=== PATIENT | male | born 1960 | race Caucasian/White ===

== ENCOUNTER 2024-09-22 07:24 | Inpatient (IN) | payer MEDICAID ==
[~2024-09-22] VITALS: Ht 180.3 cm; Wt 121.0 kg
[2024-09-22] VITALS (19 sets, daily range): BP systolic 131–165; BP diastolic 64–138; PULSE 67–110; RESP 14–20; TEMP 97.5–97.7; O2SAT 94–99
[~2024-09-22 07:24] MED LIST: BUPR-344 PO; GABA-532 PO; HYDR-4353 PO; NABU-139 PO; SIMV-42 PO
[2024-09-22] MEDS: normal saline 1000ml 1,000 ML IV ONE (08:01)
[2024-09-22] MEDS: ketorolac trometh 15mg/ml vial 15 MG/ML ML IM ONE (08:10)
[2024-09-22] MEDS: piperacillin/tazo 3.375gm/50ml 50 ML IV STA (08:10)
[2024-09-22 08:21] LABS: BASOPHILS # (AUTO) 0.1 X10'3 (0-0.2); BASOPHILS % (AUTO) 0.6 % (0-1); EOSINOPHILS # (AUTO) 0.1 X10'3 (0-0.9); EOSINOPHILS % (AUTO) 0.8 % (0-6); HEMATOCRIT 34.8 % (42.0-52.0); HEMOGLOBIN 11.7 g/dl (14.0-17.9); LYMPHOCYTES # (AUTO) 1.7 X10'3 (1.1-4.8); LYMPHOCYTES % (AUTO) 13.4 % (21-51); MEAN CORPUSCULAR HEMOGLOBIN 30.2 PG (27.0-31.0); MEAN CORPUSCULAR HGB CONC 33.5 g/dL (33.0-36.5); MEAN CORPUSCULAR VOLUME 90.2 FL (78-98); MEAN PLATELET VOLUME 7.3 FL (7.4-10.4); MONOCYTES # (AUTO) 1.5 X10'3 (0-0.9); MONOCYTES % (AUTO) 11.4 % (2-12); NEUTROPHILS # (AUTO) 9.5 X10'3 (1.8-7.7); NEUTROPHILS % (AUTO) 73.8 % (42-75); PLATELET COUNT 411 X10'3 (140-440); RED BLOOD COUNT 3.86 X10'6 (4.70-6.10); RED CELL DISTRIBUTION WIDTH 14.7 % (11.5-14.5); WHITE BLOOD COUNT 12.8 X10'3 (4.5-11.0)
[2024-09-22 08:40] LABS: ALANINE AMINOTRANSFERASE 157 U/L (12-78); ALBUMIN 3.3 G/DL (3.4-5.0); ALBUMIN/GLOBULIN RATIO 0.7 (1.1-1.5); ALKALINE PHOSPHATASE 140 IU/L (46-116); ANION GAP 9 (8-16); ASPARTATE AMINO TRANSFERASE 64 U/L (10-37); BILIRUBIN,TOTAL 0.5 MG/DL (0.1-1.0); BLOOD UREA NITROGEN 12 MG/DL (7-18); BUN/CREATININE RATIO 12.9 (10.0-20.0); CALCIUM 9.3 MG/DL (8.5-10.1); CHLORIDE 100 MMOL/L (99-107); CREATININE 0.93 MG/DL (0.60-1.10); GLUCOSE 128 MG/DL (70-104); POTASSIUM 4.3 MMOL/L (3.5-5.1); SODIUM 137 MMOL/L (135-145); TOTAL CARBON DIOXIDE 28.3 MMOL/L (24-32); TOTAL PROTEIN 7.8 G/DL (6.4-8.2); eCRCL 85 ML/MIN; eGFR 82 ML/MIN
[2024-09-22] MEDS ORDERED: iohexol 300mg/ml 100ml inj. ONE (08:47)
[2024-09-22] MEDS ORDERED: magnesium sulf-water 4G/100mL 100 ML IV PRN (10:20)
[2024-09-22] MEDS ORDERED: acetaminophen 325mg tablet PO PRN (10:20)
[2024-09-22] MEDS ORDERED: HYDROcodone/acetaminophen 5mg/325mg tablet PO PRN (10:20)
[2024-09-22] MEDS ORDERED: morphine 2 MG/ML inj. syringe IV PRN ×2 (10:20→13:05)
[2024-09-22] MEDS ORDERED: potassium Cl 40MEQ/1/2NS 520ml 520 ML IV PRN (10:20)
[2024-09-22] MEDS ORDERED: magnesium Cl slow-release 64mg tablet PO PRN (10:20)
[2024-09-22] MEDS ORDERED: mag hydrox/Alum hydrox/simeth 30ml oral suspension PO PRN (10:20)
[2024-09-22] MEDS ORDERED: potassium Cl 20 mEq SR tablet PO PRN ×2 (10:20)
[2024-09-22] MEDS ORDERED: ondansetron/PF 4mg/2ml inj IV PRN (10:20)
[2024-09-22] MEDS ORDERED: magnesium hydroxide 30ml (MOM) UD suspension PO PRN (10:20)
[2024-09-22] MEDS: HYDROmorphone 1 mg/ml syringe IV ONE (10:26)
[2024-09-22] MEDS: normal saline 1000ml 1,000 ML IV SCH (10:32)
[2024-09-22] MEDS: VANCOMYCIN 1GM 200ML H20 (PEG) 200 ML IV SCH (11:00)
[2024-09-22] MEDS ORDERED: meperidine/PF 25mg/ml syringe IV PRN ×2 (13:05)
[2024-09-22] MEDS: ringers solution, lacted 1,000 ML IV SCH (13:05)
[2024-09-22] MEDS ORDERED: proCHLORperazine 10 MG/2 ml inj IV PRN (13:05)
[2024-09-22] MEDS ORDERED: sevoflurane 250ml liquid IH ONE (13:11)
[2024-09-22] MEDS ORDERED: fentaNYL/PF 50MCG/1 ML 2ML syringe ONE (13:14)
[2024-09-22] MEDS ORDERED: midazolam 1 mg/ML 2ml injection ONE (13:15)
[2024-09-22] MEDS ORDERED: propofol inj 20 ML IV ONE (13:28)
[2024-09-22] MEDS ORDERED: ceFAZolin 1000mg inj ONE ×2 (13:28)
[2024-09-22] MEDS ORDERED: BUPIVAcaine 0.5% inj/PF 30 ML ONE (13:41)
[2024-09-22] MEDS ORDERED: ePHEDrine 50MG/ML INJ. ONE (13:57)
[2024-09-22 14:21] LABS: HIV ANTIBODY 1&2 RAPID NON-REACTIVE (Neg)
[2024-09-22] MEDS: BUPIVAcaine 0.5% inj/PF 30 ml vial IJ ONE (14:23)
[2024-09-22] MEDS: meperidine/PF 25mg/ml syringe IV PRN (14:30)
[2024-09-22] MEDS: acetaminophen 1,000mg/100ml IV 100 ML IV ONE (14:38)
[2024-09-22] MEDS: ondansetron/PF 4mg/2ml inj IV PRN (14:45)
[2024-09-22] MEDS: morphine 4 MG/ML inj SYRINge IV PRN ×2 (15:14→19:28)
[2024-09-22] MEDS: oxyCODONE/APAP 5-325mg tablet PO PRN (17:19)
[2024-09-22] MEDS: piperacillin/tazo 4.5gm/100ml 100 ML IV SCH (19:35)
[2024-09-23 06:00] VITALS: BP 180/86; PULSE 64; RESP 15; TEMP 97.8; O2SAT 95
[2024-09-23 06:45] LABS: BASOPHILS % (AUTO) 0.5 % (0-1); EOSINOPHILS # (AUTO) 0.2 X10'3 (0-0.9); EOSINOPHILS % (AUTO) 1.6 % (0-6); LYMPHOCYTES # (AUTO) 2.1 X10'3 (1.1-4.8); LYMPHOCYTES % (AUTO) 22.5 % (21-51); MEAN CORPUSCULAR HEMOGLOBIN 30.3 PG (27.0-31.0); MEAN CORPUSCULAR HGB CONC 33.5 g/dL (33.0-36.5); MEAN CORPUSCULAR VOLUME 90.4 FL (78-98); MEAN PLATELET VOLUME 7.2 FL (7.4-10.4); MONOCYTES # (AUTO) 0.8 X10'3 (0-0.9); MONOCYTES % (AUTO) 8.4 % (2-12); NEUTROPHILS # (AUTO) 6.4 X10'3 (1.8-7.7); PLATELET COUNT 358 X10'3 (140-440); RED BLOOD COUNT 3.32 X10'6 (4.70-6.10); RED CELL DISTRIBUTION WIDTH 14.7 % (11.5-14.5); WHITE BLOOD COUNT 9.5 X10'3 (4.5-11.0)
[2024-09-23 06:56] LABS: ALANINE AMINOTRANSFERASE 126 U/L (12-78); ALBUMIN 2.7 G/DL (3.4-5.0); ALBUMIN/GLOBULIN RATIO 0.7 (1.1-1.5); ALKALINE PHOSPHATASE 127 IU/L (46-116); ANION GAP 9 (8-16); ASPARTATE AMINO TRANSFERASE 43 U/L (10-37); BILIRUBIN,TOTAL 0.4 MG/DL (0.1-1.0); BLOOD UREA NITROGEN 10 MG/DL (7-18); BUN/CREATININE RATIO 12.3 (10.0-20.0); CALCIUM 8.7 MG/DL (8.5-10.1); CHLORIDE 103 MMOL/L (99-107); CREATININE 0.81 MG/DL (0.60-1.10); GLUCOSE 95 MG/DL (70-104); POTASSIUM 4.5 MMOL/L (3.5-5.1); SODIUM 139 MMOL/L (135-145); TOTAL CARBON DIOXIDE 27.1 MMOL/L (24-32); TOTAL PROTEIN 6.7 G/DL (6.4-8.2); eCRCL 98 ML/MIN; eGFR > 90 ML/MIN
[2024-09-23 08:00] VITALS: RESP 14; O2SAT 98
[2024-09-23 10:00] VITALS: BP 178/80; PULSE 71; RESP 16; TEMP 97.6; O2SAT 94
[2024-09-23] MEDS ORDERED: VANCOMYCIN LEVEL IV ONE (10:30)
[2024-09-23] MEDS ORDERED: ATOR10TA87 PO (11:00)
[2024-09-23] MEDS ORDERED: LISI40TA13 PO (11:00)
[2024-09-23] MEDS ORDERED: DOXA4TAB94 PO (11:00)
[2024-09-23] MEDS: gabapentin 300mg capsule PO SCH ×2 (13:19→19:39)
[2024-09-23] MEDS: lisinopril 20mg tablet PO ONE (14:18)
[2024-09-23] MEDS: atorvastatin 10mg tablet PO SCH (14:19)
[2024-09-23] MEDS: doxazosin mesylate 2mg tablet PO SCH (14:19)
[2024-09-23 18:00] VITALS: BP 157/74; PULSE 75; RESP 14; TEMP 98.5; O2SAT 94
[2024-09-23] MEDS: enoxaparin 40mg/0.4ml syringe SUBCUT SCH (19:41)
[2024-09-23 20:00] VITALS: RESP 14; O2SAT 94
[2024-09-23] MEDS ORDERED: vancomycin/NS 1 GM ADD-VANTAGE 250 ML IV SCH (20:00)
[2024-09-23 22:00] VITALS: BP 150/39; PULSE 82; RESP 18; TEMP 97.8; O2SAT 94
[2024-09-24] VITALS (8 sets, daily range): BP systolic 137–176; BP diastolic 63–85; PULSE 69–85; RESP 16–22; TEMP 97–98.4; O2SAT 94–96
[2024-09-24] MEDS: LORazepam 2 mg/ml vial IV PRN (00:46)
[2024-09-24 06:31] LABS: BASOPHILS % (AUTO) 0.5 % (0-1); EOSINOPHILS # (AUTO) 0.2 X10'3 (0-0.9); EOSINOPHILS % (AUTO) 2.9 % (0-6); HEMATOCRIT 34.1 % (42.0-52.0); HEMOGLOBIN 11.1 g/dl (14.0-17.9); LYMPHOCYTES # (AUTO) 2.1 X10'3 (1.1-4.8); LYMPHOCYTES % (AUTO) 28.1 % (21-51); MEAN CORPUSCULAR HEMOGLOBIN 29.5 PG (27.0-31.0); MEAN CORPUSCULAR HGB CONC 32.5 g/dL (33.0-36.5); MEAN CORPUSCULAR VOLUME 90.5 FL (78-98); MEAN PLATELET VOLUME 6.8 FL (7.4-10.4); MONOCYTES # (AUTO) 0.7 X10'3 (0-0.9); NEUTROPHILS # (AUTO) 4.4 X10'3 (1.8-7.7); NEUTROPHILS % (AUTO) 59.5 % (42-75); PLATELET COUNT 437 X10'3 (140-440); RED BLOOD COUNT 3.77 X10'6 (4.70-6.10); RED CELL DISTRIBUTION WIDTH 14.6 % (11.5-14.5); WHITE BLOOD COUNT 7.5 X10'3 (4.5-11.0)
[2024-09-24 06:45] LABS: ALANINE AMINOTRANSFERASE 146 U/L (12-78); ALBUMIN/GLOBULIN RATIO 0.7 (1.1-1.5); ALKALINE PHOSPHATASE 139 IU/L (46-116); ANION GAP 3 (8-16); ASPARTATE AMINO TRANSFERASE 63 U/L (10-37); BILIRUBIN,TOTAL 0.2 MG/DL (0.1-1.0); BLOOD UREA NITROGEN 10 MG/DL (7-18); CALCIUM 8.9 MG/DL (8.5-10.1); CHLORIDE 101 MMOL/L (99-107); GLUCOSE 93 MG/DL (70-104); POTASSIUM 4.2 MMOL/L (3.5-5.1); SODIUM 136 MMOL/L (135-145); TOTAL CARBON DIOXIDE 31.9 MMOL/L (24-32); TOTAL PROTEIN 7.3 G/DL (6.4-8.2); eCRCL 79 ML/MIN; eGFR 75 ML/MIN
[2024-09-24 07:12] LABS: TOTAL CELLS COUNTED 100
[2024-09-24 07:15] LABS: PLATELET ESTIMATE NORMAL
[2024-09-24] MEDS: lisinopril 20mg tablet PO SCH (07:30)
[2024-09-24] MEDS: CefTRIAXone/D5W-Rocephin 1gm 50 ML IV SCH (07:33)
[2024-09-24] MEDS ORDERED: VANCOMYCIN 1GM 200ML H20 (PEG) 200 ML IV SCH (08:00)
[2024-09-24] MEDS ORDERED: atorvastatin 10mg tablet PO SCH (08:00)
[2024-09-24] MEDS ORDERED: doxazosin mesylate 2mg tablet PO SCH (08:00)
[2024-09-24 08:13] LABS: HEMOGLOBIN A1C 5.8 % (4.5-6.2)
[2024-09-24] MEDS: VANCOMYCIN 1GM 200ML H20 (PEG) 200 ML IV SCH (09:25)
[2024-09-24] MEDS: LIDOcaine 4% (40 mg/ml) topical solution 50ml TP PRN (10:59)
[2024-09-24] MEDS: JUVEN Smoothie Arginine/Glut./Ca2+Bmb (Juven 19.3pkt) 240ml cup PO SCH (17:30)
[2024-09-25 08:24] LABS: BASOPHILS # (AUTO) 0.1 X10'3 (0-0.2); BASOPHILS % (AUTO) 0.7 % (0-1); EOSINOPHILS # (AUTO) 0.2 X10'3 (0-0.9); EOSINOPHILS % (AUTO) 2.7 % (0-6); HEMATOCRIT 36.1 % (42.0-52.0); HEMOGLOBIN 11.7 g/dl (14.0-17.9); LYMPHOCYTES % (AUTO) 24.6 % (21-51); MEAN CORPUSCULAR HEMOGLOBIN 29.7 PG (27.0-31.0); MEAN CORPUSCULAR HGB CONC 32.4 g/dL (33.0-36.5); MEAN CORPUSCULAR VOLUME 91.7 FL (78-98); MEAN PLATELET VOLUME 6.4 FL (7.4-10.4); MONOCYTES # (AUTO) 0.7 X10'3 (0-0.9); MONOCYTES % (AUTO) 8.4 % (2-12); NEUTROPHILS # (AUTO) 5.1 X10'3 (1.8-7.7); NEUTROPHILS % (AUTO) 63.6 % (42-75); PLATELET COUNT 442 X10'3 (140-440); RED BLOOD COUNT 3.94 X10'6 (4.70-6.10); RED CELL DISTRIBUTION WIDTH 14.9 % (11.5-14.5); WHITE BLOOD COUNT 8.1 X10'3 (4.5-11.0)
[2024-09-25 08:30] VITALS: RESP 20; O2SAT 96
[2024-09-25] MEDS: VANCOMYCIN LEVEL IV ONE (08:30)
[2024-09-25 08:47] LABS: ALANINE AMINOTRANSFERASE 167 U/L (12-78); ALBUMIN/GLOBULIN RATIO 0.7 (1.1-1.5); ALKALINE PHOSPHATASE 140 IU/L (46-116); ANION GAP 7 (8-16); ASPARTATE AMINO TRANSFERASE 64 U/L (10-37); BILIRUBIN,TOTAL 0.3 MG/DL (0.1-1.0); BLOOD UREA NITROGEN 14 MG/DL (7-18); BUN/CREATININE RATIO 15.1 (10.0-20.0); CALCIUM 8.9 MG/DL (8.5-10.1); CHLORIDE 101 MMOL/L (99-107); CREATININE 0.93 MG/DL (0.60-1.10); GLUCOSE 99 MG/DL (70-104); POTASSIUM 4.3 MMOL/L (3.5-5.1); SODIUM 136 MMOL/L (135-145); TOTAL CARBON DIOXIDE 28.1 MMOL/L (24-32); TOTAL PROTEIN 7.2 G/DL (6.4-8.2); eCRCL 85 ML/MIN; eGFR 82 ML/MIN
[2024-09-25 08:50] LABS: TOTAL CELLS COUNTED 100
[2024-09-25 08:51] LABS: PLATELET ESTIMATE INCREASED
[2024-09-25 10:00] VITALS: BP 164/77; PULSE 85; RESP 14; TEMP 97.4; O2SAT 95
[2024-09-25] MEDS: LIDOcaine 5% patch TP SCH (12:18)
[2024-09-25 18:00] VITALS: BP 132/77; PULSE 79; RESP 16; TEMP 98; O2SAT 95
[2024-09-25 20:00] VITALS: RESP 18; O2SAT 97
[2024-09-25 22:00] VITALS: BP 124/76; PULSE 84; RESP 17; TEMP 97.6; O2SAT 95
[2024-09-26 06:32] LABS: BASOPHILS # (AUTO) 0.1 X10'3 (0-0.2); BASOPHILS % (AUTO) 0.6 % (0-1); EOSINOPHILS # (AUTO) 0.2 X10'3 (0-0.9); EOSINOPHILS % (AUTO) 2.2 % (0-6); HEMATOCRIT 36.1 % (42.0-52.0); HEMOGLOBIN 11.5 g/dl (14.0-17.9); LYMPHOCYTES # (AUTO) 2.5 X10'3 (1.1-4.8); LYMPHOCYTES % (AUTO) 28.3 % (21-51); MEAN CORPUSCULAR HEMOGLOBIN 28.9 PG (27.0-31.0); MEAN CORPUSCULAR HGB CONC 31.9 g/dL (33.0-36.5); MEAN CORPUSCULAR VOLUME 90.4 FL (78-98); MEAN PLATELET VOLUME 6.4 FL (7.4-10.4); MONOCYTES # (AUTO) 0.8 X10'3 (0-0.9); MONOCYTES % (AUTO) 9.3 % (2-12); NEUTROPHILS # (AUTO) 5.3 X10'3 (1.8-7.7); NEUTROPHILS % (AUTO) 59.6 % (42-75); PLATELET COUNT 517 X10'3 (140-440); RED BLOOD COUNT 3.99 X10'6 (4.70-6.10); RED CELL DISTRIBUTION WIDTH 14.7 % (11.5-14.5); WHITE BLOOD COUNT 8.9 X10'3 (4.5-11.0)
[2024-09-26 06:41] LABS: ALANINE AMINOTRANSFERASE 145 U/L (12-78); ALBUMIN 3.1 G/DL (3.4-5.0); ALBUMIN/GLOBULIN RATIO 0.8 (1.1-1.5); ALKALINE PHOSPHATASE 138 IU/L (46-116); ANION GAP 6 (8-16); ASPARTATE AMINO TRANSFERASE 48 U/L (10-37); BILIRUBIN,TOTAL 0.3 MG/DL (0.1-1.0); BLOOD UREA NITROGEN 17 MG/DL (7-18); CALCIUM 8.8 MG/DL (8.5-10.1); CHLORIDE 102 MMOL/L (99-107); GLUCOSE 99 MG/DL (70-104); POTASSIUM 4.6 MMOL/L (3.5-5.1); SODIUM 136 MMOL/L (135-145); TOTAL CARBON DIOXIDE 27.8 MMOL/L (24-32); TOTAL PROTEIN 7.2 G/DL (6.4-8.2); eCRCL 79 ML/MIN; eGFR 75 ML/MIN
[2024-09-26 06:57] VITALS: BP 135/71; PULSE 65; RESP 18; TEMP 97.6; O2SAT 97
[2024-09-26 07:20] VITALS: RESP 18; O2SAT 97
[2024-09-26 10:00] VITALS: BP 134/55; PULSE 74; RESP 16; TEMP 97.4; O2SAT 95
[2024-09-26] MEDS ORDERED: PER5325T PO (10:41)
[2024-09-26] MEDS ORDERED: LEVO250T74 PO (10:41)
[2024-09-26] MEDS: levoFLOXACIN 250mg tablet PO SCH (10:46)
[2024-09-26 13:18] VITALS: RESP 18
[2024-09-28 05:21] LABS: HBSAG SCREEN Negative (Negative); HEP B CORE AB, TOT Negative (Negative)
== END 2024-09-26 15:30 | disposition home health service (06) | DRG 364 ==
LOC: ER 07:24 → ED HOLD 10:24 → PACU 14:43 → ORTHO 4S 15:40
PROVIDERS: ADMIT Internal Medicine; ATTEND Internal Medicine
PROC: 0Y950ZZ Drainage of Right Inguinal Region, Open Approach (ICD-10-PCS; principal; 2024-09-23)
DX: L02.214 Cutaneous abscess of groin (principal); G62.89 Other specified polyneuropathies; E88.09 Other disorders of plasma-protein metabolism, not elsewhere classified; D64.9 Anemia, unspecified; F32.A Depression, unspecified; F41.9 Anxiety disorder, unspecified; I10 Essential (primary) hypertension; R74.01 Elevation of levels of liver transaminase levels; D72.828 Other elevated white blood cell count; R73.9 Hyperglycemia, unspecified; G89.29 Other chronic pain; R59.0 Localized enlarged lymph nodes; Z79.899 Other long term (current) drug therapy
CPT/HCPCS: 36415; 74177; 80053; 80202; 83036; 83605; 85007; 85025; 86703; 86704; 87040; 87070; 87075; 87077; 87186; 87340; 93005; 97116; 97161; 97530; 99285; A4618; A6154; A6258; A6449; A7000; G0378; J0131; J0665; J0690; J0696; J1171; J1650; J1885; J2060; J2175; J2250; J2270; J2405; J2543; J2704; J3010; J3372; J3490; J7030; J7120; Q9967

== ENCOUNTER 2024-11-01 12:46 | Emergency (ER) | payer MEDICAID ==
[~2024-11-01] VITALS: Ht 180.3 cm; Wt 120.5 kg
[~2024-11-01 12:46] MED LIST changes: +ATOR10TA87 PO; +DOXA4TAB94 PO; +LEVO250T74 PO; +LISI40TA13 PO; +PER5325T PO; -SIMV-42 PO
[2024-11-01 13:12] VITALS: BP 149/67; PULSE 80; RESP 18; TEMP 96.9; O2SAT 96
[2024-11-02] MEDS ORDERED: CLIN-214 PO (07:41)
== END 2024-11-01 16:00 | disposition left against medical advice (07) ==
LOC: ER 12:47
DX: R60.9 Edema, unspecified (principal); Z53.21 Procedure and treatment not carried out due to patient leaving prior to being seen by health care provider

== ENCOUNTER 2024-11-02 07:14 | Emergency (ER) | payer MEDICAID ==
[~2024-11-02] VITALS: Ht 180.3 cm; Wt 120.5 kg
[2024-11-02 07:20] VITALS: BP 169/87; O2SAT 97
[2024-11-02] MEDS ORDERED: CLIN-214 PO (07:41)
[2024-11-02] MEDS: ketorolac trometh 30MG/ML vial 30 MG/ML VIAL IM ONE (07:46)
[2024-11-02] MEDS: clindamycin 150mg capsule PO ONE (07:46)
[2024-11-02 08:00] VITALS: PULSE 70; RESP 16; TEMP 98.1
== END 2024-11-02 08:01 | disposition home or self-care (01) ==
LOC: ER 07:14
DX: K04.7 Periapical abscess without sinus (principal); Z79.899 Other long term (current) drug therapy; Z72.89 Other problems related to lifestyle
CPT/HCPCS: 96372; 99283; J1885

== ENCOUNTER 2024-12-13 07:04 | Emergency (ER) | payer MEDICAID ==
[~2024-12-13] VITALS: Ht 180.3 cm; Wt 123.9 kg
[~2024-12-13 07:04] MED LIST changes: +CLIN-214 PO
[2024-12-13] MEDS: ketorolac trometh 30MG/ML vial 30 MG/ML VIAL IM ONE (08:18)
[2024-12-13] MEDS ORDERED: ACET-1059 PO (08:24)
[2024-12-13] MEDS ORDERED: AMOX875T10 PO (08:24)
[2024-12-13] MEDS ORDERED: IBUP-1984 PO (08:24)
[2024-12-13 08:50] VITALS: BP 147/79; PULSE 76; RESP 17; TEMP 98.5; O2SAT 96
== END 2024-12-13 08:54 | disposition home or self-care (01) ==
LOC: ER 07:05
DX: K08.89 Other specified disorders of teeth and supporting structures (principal)
CPT/HCPCS: 96372; 99284; J1885

== ENCOUNTER 2025-01-29 07:01 | Emergency (ER) | payer MEDICAID ==
[~2025-01-29] VITALS: Ht 180.3 cm; Wt 122.7 kg
[2025-01-29 07:03] VITALS: TEMP 97.6
[2025-01-29 07:17] VITALS: BP 167/93; PULSE 80; O2SAT 96
[2025-01-29] MEDS ORDERED: AMOX-580 PO (07:37)
[2025-01-29 07:41] VITALS: RESP 15
[2025-01-29] MEDS: amox tr/potassium clavulanate 875/125mg TAB PO ONE (07:41)
[2025-01-29] MEDS: ketorolac trometh 15mg/ml vial 15 MG/ML ML IM ONE (07:41)
== END 2025-01-29 07:47 | disposition home or self-care (01) ==
LOC: ER 07:03
DX: K08.89 Other specified disorders of teeth and supporting structures (principal); Z79.899 Other long term (current) drug therapy; Z72.89 Other problems related to lifestyle
CPT/HCPCS: 96372; 99283; J1885

== ENCOUNTER 2025-03-01 08:09 | Emergency (ER) | payer MEDICARE, MEDICAID ==
[~2025-03-01] VITALS: Ht 180.3 cm; Wt 120.6 kg
[~2025-03-01 08:09] MED LIST changes: +AMOX-580 PO
[2025-03-01 08:11] VITALS: BP 179/67; PULSE 80; RESP 16; TEMP 97.7; O2SAT 96
--- NOTE | 2025-03-01 08:45 | Physician Documentation ---
HPI ~ General Chief Complaint: Tooth Problem Stated Complaint: MED REQUEST TOOTH PAIN Time Seen by MD: 08:44 Primary Medical Doctor: Dr. Arrington History of Present Illness HPI Comment This is a 65-year-old male he has been seeing this ER multiple times for issues with dental infection and pain of the side of cracked tooth 12. He was most recent course of antibiotics was in his she was in his emergency department on 01/29/2025. He notes that each time he gets antibiotics, he improves, but then the issue returns. He was trying to get in with a dental office, but has not had any success. He denies chills, fever, difficulty swallowing, any other concerns besides the tooth pain and associated left upper facial swelling. Medication Reconciliation Allergies: Coded Allergies: No Known Allergies (Unverified , 11/02/24) Scheduled Amox Tr/Potassium Clavulanate 875/125 MG (Augmentin 875/125 MG), 1 TAB PO BID Amox Tr/Potassium Clavulanate 875/125 MG (Augmentin 875/125 MG), 1 TAB PO Q12H Atorvastatin Calcium* (Lipitor*), 1 TAB PO DAILY, (Reported) Bupropion XL (Bupropion Xl), PO DAILY, (Reported) Chlorhexidine Gluconate (Chlorhexidine Gluconate), 1 APPLIC TOP DAILY Clindamycin HCl (Clindamycin HCl CAPSULE), 2 CAP PO BID Doxazosin Mesylate (Doxazosin Mesylate), 1 TAB PO DAILY, (Reported) Gabapentin (Gabapentin), 1 CAP PO TID, (Reported) Hydrocodone Bit/Acetaminophen ([place] 10-325 Tablet), 1-2 TAB PO BID, (Reported) Levofloxacin (Levofloxacin), 750 MG PO DAILY@11 Lisinopril* (Lisinopril*), 1 TAB PO DAILY, (Reported) Nabumetone (Nabumetone), 1 TABLET PO BID, (Reported) Scheduled PRN Oxycodone Hcl/Acetaminophen 5/325 MG* (Percocet 5/325 MG*), 1 TAB PO Q6H PRN for moderate or severe pain 4-10 Past Medical History Past Medical History: Cellulitis Past Surgical History: noncontributory Alcohol Use: Occasionally Drug Use: none Lives In: Home Review of Systems ROS As stated above in the HPI, otherwise all systems are reviewed and negative. Physical Exam Vital Signs: Temperature: 97.7, Source: Oral, Heart Rate: 80, Respiratory Rate: 16, BP: 179/67, Pulse Oximetry: 96, Weight: 120.600 Oxygen Flow Rate: 0 Physical Exam General: Alert, no apparent distress. HEENT: PERRL, EOMI, no injection, moist mucous membranes. Ear canals clear, TMs normal. Tooth #12 decaying/blackened/cracked and with mild surrounding erythema. Left facial swelling also noted. Neck: Full range of motion. Respiratory: Lungs clear, no respiratory distress. Chest: No accessory muscle use. Cardiovascular: Regular rate and rhythm, no murmurs. Gastrointestinal: Soft, nontender, nondistended. Bowels sounds present. Extremities: Normal range of motion, no deformity. Neurologic: Oriented x4. Psychiatric: Normal mood and affect. Skin: Normal color, warm and dry. No edema, no ecchymosis. Progress Results/Orders Results/Orders Orders - MEERA WEBBER NP Ketorolac Trometh 15mg/Ml Vial (Toradol (03/01/25 08:50) Vital Signs 03/01/25 08:11 Temp 97.7 Pulse 80 Resp 16 B/P (MAP) 179/67 Pulse Ox 96 O2 Flow Rate 0 Medical Decision Making Differential Dx:Considerations: Include: Alveolar fracture, Alveolar osteitis, ANUG, Facial Cellulitis, Periapical abscess, Peridontal abscess, Post-extraction bleeding, Pulpitis, Tooth avulsion, Tooth eruption, Tooth Fracture, Trigeminal neuralgia, Tooth subluxation Additional Comment No trismus. Departure Time of Disposition: 08:51 Disposition: 01 HOME / SELF CARE / HOMELESS Impression: Primary Impression: Disturbances in tooth eruption Additional Impressions: Toothache Hypertension Condition: Stable Discharge Instructions: Dental Caries, Adult, Dental Pain, Hypertension, Adult Additional Instructions: Keep working on getting in with a dentist as soon it was possible. Meanwhile, complete the course of antibiotics as prescribed. Use a medicated mouthwash. Return if worse while awaiting dental appointment. Your BP is high with ever ER visit. Please see your primary care soon to discuss management of this issue. Referrals: NO PRIMARY CARE PROVIDER (PCP) Prescriptions Chlorhexidine Gluconate (Chlorhexidine Gluconate) 4 % Liquid 1 APPLIC TOP DAILY for 2 Days, #237 ML 0 Refills DIRECTED Prov: MEERA WEBBER NP 03/01/25 Amox Tr/Potassium Clavulanate 875/125 MG (Augmentin 875/125 MG) 875 Mg-125 Mg Tablet 1 TAB PO Q12H for 10 Days, #20 TAB Prov: MEERA WEBBER NP 03/01/25 Education Educated: Patient Educated regarding: diagnosis, treatment, prognosis, need for follow up Signature Scribe Signature: no scribe Attestation: The note accurately reflects work and decisions made by me.Meera Lucero NP 03/01/25 08:58 MEERA WEBBER NP Mar 01, 2025 08:44
[2025-03-01] MEDS ORDERED: AMOX-580 PO (08:52)
[2025-03-01] MEDS ORDERED: CHLO118L3 TOP (08:52)
[2025-03-01] MEDS: ketorolac trometh 15mg/ml vial 15 MG/ML ML IM ONE (09:04)
== END 2025-03-01 09:13 | disposition home or self-care (01) ==
LOC: ER 08:10
DX: K00.6 Disturbances in tooth eruption (principal); K03.81 Cracked tooth; I10 Essential (primary) hypertension; Z79.899 Other long term (current) drug therapy; Z72.89 Other problems related to lifestyle
CPT/HCPCS: 96372; 99283; J1885